=== PATIENT | female | born 1990 | race American Indian/Alaskan Native ===

== ENCOUNTER 2017-04-01 16:38 | Outpatient (CLI) | payer MEDICAID ==
[2017-04-01 17:34] VITALS: BP 105/62
[2017-04-01 17:48] LABS: Urine Drugs of Abuse Note Disclamer
[2017-04-01] MEDS ORDERED: LACTATED RINGERS 500 ML IV ONE (17:58)
[2017-04-01 18:46] LABS: Alanine Aminotransferase 25 units/L (7-56); Albumin/Globulin Ratio 1.1 %; Alkaline Phosphatase 66 units/L (35-129); Amylase 96 units/L (27-131); Anion Gap 15 mmol/L; Blood Urea Nitrogen 10 mg/dL (7-17); Calcium 8.1 mg/dL (8.4-10.2); Carbon Dioxide 22 mmol/L (22-30); Chloride 101.9 mmol/L (98-107); Glucose 73 mg/dL (65-100); Lipase 28 units/L (13-60); Potassium 3.7 mmol/L (3.6-5.0); Sodium 135 mmol/L (137-145); Total Protein 5.8 g/dL (6.3-8.2)
--- NOTE | 2017-04-01 19:13 | Event Note ---
Date: 04/01/17 (pt arrived with c/o left UQ pain and left shoulder pain) complete physical assessment done Pt denies any complications with this her complaint today is LUQ pain and left shoulder pain VSS afebrile. Pt is nontender in upper abdomen and uterus is nontender; No ctx recorded; FHR Category 1 Pt has full ROM in head and neck Labs CMP Amylase and Lipase normal. Pt given copy of results to share with provider. All findings explained to pt. All questions addressed. At completion of visit pt states her [employer] ins has lapsed and she only has Medicaid. Pt was given a list of OB providers and states she will call one of them for an appointment. Total time with pt to include consult and exam 20 minutes.
== END 2017-04-01 19:25 | disposition home or self-care (01) ==
LOC: EDSTATUS 17:01 → TRG 17:06
PROVIDERS: ATTEND Obstetrics & Gynecology
DX: O26.893 Other specified pregnancy related conditions, third trimester (principal); M54.89 Other dorsalgia; R06.02 Shortness of breath; Z3A.34 34 weeks gestation of pregnancy
CPT/HCPCS: 36415; 80053; 80307; 82150; 83690

== ENCOUNTER 2017-11-06 10:07 | Emergency (ER) | payer SELFPAY ==
[2017-11-06 10:39] VITALS: BP 132/82
== END 2017-11-06 14:05 | disposition left against medical advice (07) ==
LOC: ED 10:07
DX: R10.9 Unspecified abdominal pain (principal); Z53.21 Procedure and treatment not carried out due to patient leaving prior to being seen by health care provider
CPT/HCPCS: 93005; 93010

== ENCOUNTER 2017-11-28 04:28 | Inpatient (IN) | payer OTHER ==
[2017-11-28 05:25] LABS: Basophils % (Auto) 0.5 % (0.0-1.8); Eosinophils % (Auto) 0.9 % (0.0-4.3); Hematocrit 44.6 % (30.3-42.9); Hemoglobin 15.4 gm/dl (10.1-14.3); Lymphocytes # (Auto) 0.9 K/mm3 (1.2-5.4); Lymphocytes % (Auto) 16.9 % (13.4-35.0); Mean Corpuscular HGB Conc 35 % (30-34); Mean Corpuscular Hemoglobin 36 pg (28-32); Mean Corpuscular Volume 104 fl (79-97); Monocytes # (Auto) 0.5 K/mm3 (0.0-0.8); Monocytes % (Auto) 9.8 % (0.0-7.3); Platelet Count 192 K/mm3 (140-440); Red Cell Distribution Width 13.9 % (13.2-15.2)
[2017-11-28 05:42] LABS: BUN/Creatinine Ratio 11; Blood Urea Nitrogen 8 mg/dL (7-17); Calcium 8.4 mg/dL (8.4-10.2); Hemolysis Index 10
[2017-11-28] MEDS ORDERED: VITAMIN B-1 100 MG, FOLVITE 1 MG, INFUVITE 10 ML in NACL 0.9% 1000 ML 1,000 ML IV ONE ×2 (07:41→10:45)
[2017-11-28] MEDS ORDERED: ATIVAN IV ONE (07:41)
[2017-11-28] MEDS ORDERED: ATIVAN IV PRN ×2 (07:42)
[2017-11-28] MEDS ORDERED: K-DUR PO ONE (07:44)
[2017-11-28 07:49] LABS: Bacteria,Urine 3+ /HPF (Negative); Bilirubin,Urine NEG (Negative); Blood,Urine LG (Negative); Color,Urine Yellow (Yellow); Mucus,Urine FEW /HPF; Nitrite,Urine NEG (Negative)
[2017-11-28] MEDS ORDERED: D5NS 1,000 ML IV NR (08:00)
[2017-11-28 08:03] LABS: WBC,Urine > 182.0 /HPF (0.0-6.0)
[2017-11-28 08:04] LABS: Bilirubin,Direct 0.3 mg/dL (0-0.2); Magnesium 1.7 mg/dL (1.7-2.3)
[2017-11-28] MEDS ORDERED: ROCEPHIN/NS 1 GM/50 ML 1 GM/50 ML BAG IV ONE (08:15)
--- NOTE | 2017-11-28 08:21 | Emergency Department Report ---
ED Alcohol HPI - General Chief Complaint: Back Pain/Injury Stated Complaint: ANXIOUS Time Seen by Provider: 11/28/17 07:32 Source: family, EMS Mode of arrival: Ambulatory Limitations: No Limitations - History of Present Illness Initial Comments: 27-year-old female with a past medical history of asthma and alcohol abuse presented to the hospital with complaints of feeling anxious, tachycardia, syncope, urinary symptoms. Patient drinks alcohol daily and for the past 2 days has been drinking more than usual. Last drink was 1 PM. Positive recent history of alcohol tremors. About 11 PM patient began feeling anxious with palpitations. She had a brief syncopal episode after standing. Patient also complaining of lower back pain, difficulty voiding, and urinary urgency 1 day. Patient denies headache, chest pain, shortness of breath, abdominal pain, or fever. Positive family history of alcohol abuse. Patient has never received alcohol abuse treatment. - Related Data Allergies Allergy/AdvReac Type Severity Reaction Status Date / Time No Known Allergies Allergy Verified 11/06/17 10:37 ED Review of Systems ROS: Stated complaint: ANXIOUS Other details as noted in HPI Comment: All other systems reviewed and negative Other: Constitutional: No fevers chills Eyes: No eye pain visual changes ENT: No ear pain or throat pain Neck: Denies pain Respiratory: Denies cough wheezing shortness of breath Cardiovascular: Denies chest pain GI: Denies abdominal pain, nausea, vomiting, diarrhea : As per HPI Musculoskeletal: Denies back pain, joint swelling Skin: Denies rash, lesions, erythema Neurologic: Denies headache, numbness, weakness Psychiatric: Denies suicidal ideation, hallucinations ED Past Medical Hx - Past Medical History Previous Medical History?: Yes Hx Hypertension: No Hx Diabetes: No Hx Deep Vein Thrombosis: No Hx Renal Disease: No Hx Sickle Cell Disease: No Hx Seizures: No Hx Asthma: Yes (last attack 1 yr ago) Hx HIV: No - Surgical History Past Surgical History?: No - Family History Family history: other (alcohol abuse) - Social History Smoking Status: Never Smoker Substance Use Type: Alcohol (daily use) ED Physical Exam - General Limitations: No Limitations - Other Other exam information: General: No limitations, patient is alert in no acute distress Head exam: Atraumatic, normocephalic Eyes exam: Normal appearance, nonicteric sclera ENT: Moist mucous membrane, normal oropharynx Neck exam: Normal inspection, full range of motion, no meningismus nontender Respiratory exam: Clear to auscultation bilateral, no wheezes, rales, crackles Cardiovascular: Tachycardic regular rhythm Abdomen: Soft, nondistended, and nontender, with normal bowel sounds, no rebound, or guarding Extremity: Full range of motion normal inspection no deformity Back: Normal Inspection, full range of motion, no tenderness Neurologic: Alert, oriented x3, cranial nerves intact, no motor or sensory deficit. Positive tremor Psychiatric: Mildly anxious Skin: Warm, dry, intact ED Course Vital Signs 11/28/17 11/28/17 11/28/17 04:38 07:28 07:30 Temperature 98.5 F Pulse Rate 130 H 119 H 108 H Respiratory 22 12 25 H Rate Blood Pressure 140/89 147/88 O2 Sat by Pulse 100 Oximetry 11/28/17 07:39 Temperature 98.6 F Pulse Rate Respiratory Rate Blood Pressure O2 Sat by Pulse 98 Oximetry ED Medical Decision Making - Lab Data Result diagrams: 11/28/17 05:12 11/28/17 05:12 Lab Results 11/28/17 11/28/17 11/28/17 Range/Units 05:12 05:12 05:12 WBC 5.5 (4.5-11.0) K/mm3 RBC 4.30 (3.65-5.03) M/mm3 Hgb 15.4 H (10.1-14.3) gm/dl Hct 44.6 H (30.3-42.9) % MCV 104 H (79-97) fl MCH 36 H (28-32) pg MCHC 35 H (30-34) % RDW 13.9 (13.2-15.2) % Plt Count 192 (140-440) K/mm3 Lymph % (Auto) 16.9 (13.4-35.0) % [place] % (Auto) 9.8 H (0.0-7.3) % Eos % (Auto) 0.9 (0.0-4.3) % Baso % (Auto) 0.5 (0.0-1.8) % Lymph # 0.9 L (1.2-5.4) K/mm3 [place] # 0.5 (0.0-0.8) K/mm3 Eos # 0.0 (0.0-0.4) K/mm3 Baso # 0.0 (0.0-0.1) K/mm3 Seg Neutrophils % 71.9 H (40.0-70.0) % Seg Neutrophils # 4.0 (1.8-7.7) K/mm3 Sodium 138 (137-145) mmol/L Potassium 3.5 L (3.6-5.0) mmol/L Chloride 99.8 (98-107) mmol/L Carbon Dioxide 22 (22-30) mmol/L Anion Gap 20 mmol/L BUN 8 (7-17) mg/dL Creatinine 0.7 (0.7-1.2) mg/dL Estimated GFR > 60 ml/min BUN/Creatinine Ratio 11 % Glucose 105 H (65-100) mg/dL Calcium 8.4 (8.4-10.2) mg/dL Magnesium (1.7-2.3) mg/dL Total Bilirubin (0.1-1.2) mg/dL Direct Bilirubin (0-0.2) mg/dL Indirect Bilirubin mg/dL AST (5-40) units/L ALT (7-56) units/L Alkaline Phosphatase (35-129) units/L Total Protein (6.3-8.2) g/dL Albumin (3.9-5) g/dL Albumin/Globulin Ratio % HCG, Qual Negative (Negative) Urine Color (Yellow) Urine Turbidity (Clear) Urine pH (5.0-7.0) Ur Specific [place] (1.003-1.030) Urine Protein (Negative) mg/dL Urine Glucose (UA) (Negative) mg/dL Urine Ketones (Negative) mg/dL Urine Blood (Negative) Urine Nitrite (Negative) Urine Bilirubin (Negative) Urine Urobilinogen (<2.0) mg/dL Ur Leukocyte Esterase (Negative) Urine WBC (Auto) (0.0-6.0) /HPF Urine RBC (Auto) (0.0-6.0) /HPF U Epithel Cells (Auto) (0-13.0) /HPF Urine Bacteria (Auto) (Negative) /HPF Urine Mucus /HPF 11/28/17 11/28/17 Range/Units 06:11 07:41 WBC (4.5-11.0) K/mm3 RBC (3.65-5.03) M/mm3 Hgb (10.1-14.3) gm/dl Hct (30.3-42.9) % MCV (79-97) fl MCH (28-32) pg MCHC (30-34) % RDW (13.2-15.2) % Plt Count (140-440) K/mm3 Lymph % (Auto) (13.4-35.0) % [place] % (Auto) (0.0-7.3) % Eos % (Auto) (0.0-4.3) % Baso % (Auto) (0.0-1.8) % Lymph # (1.2-5.4) K/mm3 [place] # (0.0-0.8) K/mm3 Eos # (0.0-0.4) K/mm3 Baso # (0.0-0.1) K/mm3 Seg Neutrophils % (40.0-70.0) % Seg Neutrophils # (1.8-7.7) K/mm3 Sodium (137-145) mmol/L Potassium (3.6-5.0) mmol/L Chloride (98-107) mmol/L Carbon Dioxide (22-30) mmol/L Anion Gap mmol/L BUN (7-17) mg/dL Creatinine (0.7-1.2) mg/dL Estimated GFR ml/min BUN/Creatinine Ratio % Glucose (65-100) mg/dL Calcium (8.4-10.2) mg/dL Magnesium 1.70 (1.7-2.3) mg/dL Total Bilirubin 1.50 H (0.1-1.2) mg/dL Direct Bilirubin 0.3 H (0-0.2) mg/dL Indirect Bilirubin 1.2 mg/dL AST 33 (5-40) units/L ALT 26 (7-56) units/L Alkaline Phosphatase 61 (35-129) units/L Total Protein 6.7 (6.3-8.2) g/dL Albumin 4.0 (3.9-5) g/dL Albumin/Globulin Ratio 1.5 % HCG, Qual (Negative) Urine Color Yellow (Yellow) Urine Turbidity Clear (Clear) Urine pH 6.0 (5.0-7.0) Ur Specific [place] 1.021 (1.003-1.030) Urine Protein 100 mg/dl (Negative) mg/dL Urine Glucose (UA) Neg (Negative) mg/dL Urine Ketones Neg (Negative) mg/dL Urine Blood Lg (Negative) Urine Nitrite Neg (Negative) Urine Bilirubin Neg (Negative) Urine Urobilinogen 2.0 (<2.0) mg/dL Ur Leukocyte Esterase Mod (Negative) Urine WBC (Auto) > 182.0 H (0.0-6.0) /HPF Urine RBC (Auto) 10.0 (0.0-6.0) /HPF U Epithel Cells (Auto) 10.0 (0-13.0) /HPF Urine Bacteria (Auto) 3+ (Negative) /HPF Urine Mucus Few /HPF - EKG Data -: EKG Interpreted by Me EKG shows normal: sinus rhythm, axis (70), QRS complexes (78), ST-T waves (no stemi/t inv) Rate: tachycardia (112) - Radiology Data Radiology results: report reviewed read by radiologist: ct Head: naf - Medical Decision Making Palpitations/tachycardia Likely secondary to alcohol withdrawal Associated tremors Patient received a banana bag Normal saline Ativan IV CIWA protocol initiated LFTs normal Mild hypokalemia supplement it with by mouth potassium Magnesium normal UDS pending Syncope Likely associated with dehydration CT head negative negative Urinary symptoms Positive tachycardia but no signs of sepsis IV Rocephin given Urine culture pending Although improving patient's persistent tachycardia despite treatment and will be admitted to the hospital - Differential Diagnosis alcohol withdrawal, anemia, dehydration, UTI, Critical Care Time: No Critical care attestation.: If time is entered above; I have spent that time in minutes in the direct care of this critically ill patient, excluding procedure time. ED Disposition Clinical Impression: Alcohol abuse, Alcohol withdrawal, UTI (urinary tract infection), Syncope, Hypokalemia Disposition: DC-09 OP ADMIT IP TO THIS HOSP Is pt being admited?: Yes Condition: Stable Time of Disposition: 09:58 (Dr rubio/hosp)
--- NOTE | 2017-11-28 08:33 | Cat Scan Report ---
FINAL REPORT EXAM: CT HEAD/BRAIN WO CON HISTORY: syncope TECHNIQUE: CT imaging acquired through the head without intravenous contrast. Transaxial reformations are provided. PRIORS: None. FINDINGS: The ventricles, cisterns and sulci are normal. No intraparenchymal or extra-axial mass, hemorrhage, or mass effect. Azar and white-matter differentiation is normal. Normal spherical shape of the globes. Paranasal sinuses and mastoid air cells are clear. No skull or facial fracture visualized. IMPRESSION: No acute intracranial abnormality.
[2017-11-28] MEDS ORDERED: cefTRIAXone 1 GM in NACL 0.9% 20 ML IV ONE (08:45)
[2017-11-28 10:08] LABS: Amphetamine Screen,Urine PRESUMPTIVE NEGATIVE; Benzodiazepines Screen,Urine PRESUMPTIVE NEGATIVE; Cannabinoid Screen,Urine PRESUMPTIVE NEGATIVE; Cocaine Screen,Urine PRESUMPTIVE NEGATIVE; Methadone Screen,Urine PRESUMPTIVE NEGATIVE; Opiate Screen,Urine PRESUMPTIVE NEGATIVE
[2017-11-28] MEDS ORDERED: ZOFRAN IV PRN ×2 (10:42→10:49)
[2017-11-28] MEDS ORDERED: MILK OF MAGNESIA PO PRN ×2 (10:42→10:49)
[2017-11-28] MEDS ORDERED: TYLENOL PO PRN ×2 (10:42→10:49)
[2017-11-28] MEDS ORDERED: PERCOCET 5/325 PO PRN (10:49)
[2017-11-28] MEDS ORDERED: DULCOLAX PR PRN ×2 (10:49→11:00)
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
[2017-11-28] MEDS ORDERED: cefTRIAXone 1 GM in NACL 0.9% 20 ML IV SCH (11:00)
[2017-11-28] MEDS ORDERED: NACL 0.9% 1000 ML 1,000 ML ONE (13:58)
[2017-11-28] MEDS: NACL 0.9% 1000 ML 1,000 ML IV SCH ×2 (14:03→22:32)
[2017-11-28] MEDS ORDERED: ATIVAN ONE (14:07)
[2017-11-29 06:33] LABS: BUN/Creatinine Ratio 5; Blood Urea Nitrogen 3 mg/dL (7-17); Calcium 8.1 mg/dL (8.4-10.2); Hemolysis Index 8
[2017-11-29 08:45] VITALS: BP 129/89
[2017-11-29] MEDS ORDERED: ROCEPHIN/NS 1 GM/50 ML 1 GM/50 ML BAG IV SCH (10:00)
[2017-11-29] MEDS ORDERED: cefTRIAXone 1 GM in NACL 0.9% 20 ML IV SCH (10:00)
[2017-11-29] MEDS: NACL 0.9% 1000 ML 1,000 ML IV SCH (12:00)
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
== END 2017-11-29 14:25 | disposition home or self-care (01) | DRG 690 ==
LOC: ED 04:28 → 3A 10:49
PROVIDERS: ADMIT Internal Medicine; ATTEND Internal Medicine
DX: N39.0 Urinary tract infection, site not specified (principal); F10.239 Alcohol dependence with withdrawal, unspecified; F41.9 Anxiety disorder, unspecified; R00.0 Tachycardia, unspecified; E87.6 Hypokalemia; R55 Syncope and collapse; Z81.1 Family history of alcohol abuse and dependence
CPT/HCPCS: 36415; 70450; 80048; 80074; 80307; 81001; 83735; 84703; 85025; 87076; 87086; 87186; 93005; 93010; 96365; 96366; 96375; 99285; J0696; J2060; J3411; J7030; J7042

== ENCOUNTER 2018-04-22 06:22 | Emergency (ER) | payer MEDICAID ==
[2018-04-22] MEDS ORDERED: TYLENOL ONE (07:00)
[2018-04-22] MEDS ORDERED: ASPIRIN PO ONE (07:01)
[2018-04-22 07:19] LABS: Basophils % (Auto) 0.7 % (0.0-1.8); Eosinophils # (Auto) 0.1 K/mm3 (0.0-0.4); Eosinophils % (Auto) 1.8 % (0.0-4.3); Hematocrit 44.2 % (30.3-42.9); Lymphocytes # (Auto) 1.1 K/mm3 (1.2-5.4); Lymphocytes % (Auto) 24.7 % (13.4-35.0); Mean Corpuscular HGB Conc 34 % (30-34); Mean Corpuscular Hemoglobin 35 pg (28-32); Mean Corpuscular Volume 103 fl (79-97); Monocytes # (Auto) 0.4 K/mm3 (0.0-0.8); Monocytes % (Auto) 8.9 % (0.0-7.3); Platelet Count 192 K/mm3 (140-440); Red Cell Distribution Width 13.6 % (13.2-15.2)
[2018-04-22 07:30] LABS: BUN/Creatinine Ratio 16; Blood Urea Nitrogen 11 mg/dL (7-17); Hemolysis Index 11
[2018-04-22] MEDS ORDERED: TENORMIN PO ONE (08:11)
[2018-04-22] MEDS ORDERED: TORADOL IV ONE (08:11)
[2018-04-22] MEDS ORDERED: BENADRYL IV ONE (08:11)
[2018-04-22] MEDS ORDERED: NACL 0.9% 1000 ML 1,000 ML IV ONE (08:11)
[2018-04-22] MEDS ORDERED: REGLAN IV ONE (08:11)
--- NOTE | 2018-04-22 09:03 | Emergency Department Report ---
ED Headache HPI - General Chief Complaint: Chest Pain Stated Complaint: CP Time Seen by Provider: 04/22/18 07:54 Source: patient Exam Limitations: no limitations - History of Present Illness Initial Comments: 28-year-old female with a past medical history of asthma, anxiety, and alcohol abuse presents also complaining of intermittent left-sided headache since yesterday. Yesterday she has had also left frontal headache at 9 PM. Pain was severe in intensity. It went away after stress reliever tea. This morning while showering left headache returned and was worse than last night. Her stress tea did not help the headache this time. During headache episodes patient has mid upper chest pain described as a tightness worse with swallowing. Positive associated nausea without photosensitivity, blurred vision , focal weakness, focal numbness, neck pain, shortness of breath, or vomiting. Patient was admitted earlier this year for alcohol withdrawal symptoms. Patient states she has decreased her alcohol use and no longer drinks alcohol daily. She does take atenolol 12.5 mg daily and is requesting her scheduled dose. Allergies/Adverse Reactions: Allergies No Known Allergies Allergy (Verified 11/06/17 10:37) Home Medications: Ambulatory Orders Multivitamin Tablet 11/28/17 Ciprofloxacin HCl [Cipro] 500 mg PO BID #6 tablet 11/29/17 Amoxicillin/K Clav Tab [Augmentin 875 mg] 1 tab PO Q12HR #14 tab 04/22/18 Butalb/Acetamin/Caff 50-325-40 [Fioricet] 1 tab PO Q6HR PRN #20 tab 04/22/18 Ibuprofen [Motrin] 600 mg PO Q8H PRN #30 tablet 04/22/18 ED Review of Systems ROS: Stated complaint: CP Other details as noted in HPI Comment: All other systems reviewed and negative ED Past Medical Hx - Past Medical History Previous Medical History?: Yes Hx Hypertension: No Hx Diabetes: No Hx Deep Vein Thrombosis: No Hx Renal Disease: No Hx Sickle Cell Disease: No Hx Seizures: No Hx Asthma: Yes Hx HIV: No - Surgical History Past Surgical History?: No - Social History Smoking Status: Never Smoker Substance Use Type: Alcohol - Medications Home Medications: Home Medications Medication Instructions Recorded Confirmed Last Taken Type Multivitamin Tablet 11/28/17 Unknown History Ciprofloxacin HCl [Cipro] 500 mg PO BID #6 tablet 11/29/17 Unknown Rx Amoxicillin/K Clav Tab [Augmentin 1 tab PO Q12HR #14 tab 04/22/18 Unknown Rx 875 mg] Butalb/Acetamin/Caff 50-325-40 1 tab PO Q6HR PRN #20 tab 04/22/18 Unknown Rx [Fioricet] Ibuprofen [Motrin] 600 mg PO Q8H PRN #30 tablet 04/22/18 Unknown Rx ED Physical Exam - General Limitations: No Limitations - Other Other exam information: General: No limitations, patient is alert in no acute distress Head exam: Atraumatic, normocephalic, no sinus tenderness Eyes exam: Normal appearance, pupils equal reactive to light, extraocular movements intact ENT: Moist mucous membrane, normal oropharynx Neck exam: Normal inspection, full range of motion, no meningismus nontender Respiratory exam: Clear to auscultation bilateral, no wheezes, rales, crackles Cardiovascular: Normal rate and rhythm, normal heart sounds, no chest wall tenderness Abdomen: Soft, nondistended, and nontender, with normal bowel sounds, no rebound, or guarding Extremity: Full range of motion normal inspection no deformity Back: Normal Inspection, full range of motion, no tenderness Neurologic: Alert, oriented x3, cranial nerves intact, no motor or sensory deficit Psychiatric: normal affect, normal mood Skin: Warm, dry, intact ED Course Vital Signs 04/22/18 04/22/18 04/22/18 06:53 07:47 08:00 Temperature 98.1 F Pulse Rate 55 L Respiratory 12 Rate Blood Pressure 129/85 129/85 Blood Pressure [Right] O2 Sat by Pulse 98 100 100 Oximetry 04/22/18 04/22/18 04/22/18 08:15 08:34 08:45 Temperature Pulse Rate Respiratory Rate Blood Pressure 127/77 129/85 129/85 Blood Pressure [Right] O2 Sat by Pulse 100 77 L Oximetry 04/22/18 04/22/18 04/22/18 09:03 09:11 09:15 Temperature Pulse Rate 89 107 H Respiratory 13 Rate Blood Pressure 129/85 139/83 Blood Pressure [Right] O2 Sat by Pulse 100 Oximetry 04/22/18 04/22/18 09:30 11:00 Temperature Pulse Rate 77 Respiratory 16 Rate Blood Pressure 115/74 Blood Pressure 116/69 [Right] O2 Sat by Pulse 99 99 Oximetry ED Medical Decision Making - Lab Data Result diagrams: 04/22/18 07:10 04/22/18 07:10 Lab Results 04/22/18 04/22/18 04/22/18 Range/Units 07:10 07:10 07:10 WBC 4.3 L (4.5-11.0) K/mm3 RBC 4.30 (3.65-5.03) M/mm3 Hgb 15.0 H (10.1-14.3) gm/dl Hct 44.2 H (30.3-42.9) % MCV 103 H (79-97) fl MCH 35 H (28-32) pg MCHC 34 (30-34) % RDW 13.6 (13.2-15.2) % Plt Count 192 (140-440) K/mm3 Lymph % (Auto) 24.7 (13.4-35.0) % [place] % (Auto) 8.9 H (0.0-7.3) % Eos % (Auto) 1.8 (0.0-4.3) % Baso % (Auto) 0.7 (0.0-1.8) % Lymph # 1.1 L (1.2-5.4) K/mm3 [place] # 0.4 (0.0-0.8) K/mm3 Eos # 0.1 (0.0-0.4) K/mm3 Baso # 0.0 (0.0-0.1) K/mm3 Seg Neutrophils % 63.9 (40.0-70.0) % Seg Neutrophils # 2.7 (1.8-7.7) K/mm3 Sodium 139 (137-145) mmol/L Potassium 4.0 (3.6-5.0) mmol/L Chloride 101.4 (98-107) mmol/L Carbon Dioxide 24 (22-30) mmol/L Anion Gap 18 mmol/L BUN 11 (7-17) mg/dL Creatinine 0.7 (0.7-1.2) mg/dL Estimated GFR > 60 ml/min BUN/Creatinine Ratio 16 % Glucose 89 (65-100) mg/dL Calcium 9.0 (8.4-10.2) mg/dL Troponin T < 0.010 (0.00-0.029) ng/mL HCG, Qual Negative (Negative) - EKG Data -: EKG Interpreted by De EKG shows normal: sinus rhythm, axis Rate: normal (99) - Radiology Data Radiology results: report reviewed CT HEAD WITHOUT CONTRAST: HISTORY: Left frontal headache. TECHNIQUE: Sequential 2.5mm CT images. COMPARISON: 11/28/17. FINDINGS: Cerebral Parenchyma: Within normal limits. Cerebellum: Within normal limits. Brainstem: Within normal limits. Ventricles: Normal. Sella: Normal. Extra-axial spaces: Normal. Basal Cisterns: Normal. Intracranial Hemorrhage: None. Midline Shift: None. Calvarium: Normal. Sinuses: There is a mild degree of fluid in the anterior ethmoid air cells and right frontal sinus which is new since the previous exam. The remaining visualized sinuses are well-aerated. Mastoid Air Cells: Normal. Visualized Orbits: Normal. IMPRESSION: Cranial CT scan within normal limits. Mild ethmoid and right frontal sinus disease which is new since 11/28/17. Correlate for sinusitis. Transcribed By: TTR Dictated By: YEFRI POWELL JR, MD Electronically Authenticated By: YEFRI POWELL JR, MD Signed Date/Time: 04/22/18 0858 - Medical Decision Making Triage heart rate is 55 the patient has a heart rate of 99 on EKG and monitor. Atenolol 12.5 given Migraine cocktail: reglan, benadryl, toradol, NS given Augmentin for new sinusitis hr improved after atenolol dose sx improved prior to d/cd We'll be discharged home with treatment for headache and sinusitis - Differential Diagnosis migraine, ICH, sinus, tensin, cluster, mi, atypical cp Critical Care Time: No Critical care attestation.: If time is entered above; I have spent that time in minutes in the direct care of this critically ill patient, excluding procedure time. ED Disposition Clinical Impression: Headache, Acute sinusitis Disposition: DC- TO HOME OR SELFCARE Is pt being admited?: No Does the pt Need Aspirin: No Condition: Stable Instructions: Sinusitis (ED), Acute Headache (ED) Additional Instructions: Take the medication as prescribed. Follow-up with your doctor. Return if symptoms worsen as indicated by your discharge instructions. Prescriptions: Amoxicillin/K Clav Tab [Augmentin 875 mg] 1 tab PO Q12HR #14 tab Butalb/Acetamin/Caff 50-325-40 [Fioricet] 1 tab PO Q6HR PRN #20 tab PRN Reason: Headache Ibuprofen [Motrin] 600 mg PO Q8H PRN #30 tablet PRN Reason: Pain Referrals: NELSY SAHNI MD [Primary Care Provider] - 3-5 Days Time of Disposition: 11:43
--- NOTE | 2018-04-22 09:21 | Cat Scan Report ---
CT HEAD WITHOUT CONTRAST: HISTORY: Left frontal headache. TECHNIQUE: Sequential 2.5mm CT images. COMPARISON: 11/28/17. FINDINGS: Cerebral Parenchyma: Within normal limits. Cerebellum: Within normal limits. Brainstem: Within normal limits. Ventricles: Normal. Sella: Normal. Extra-axial spaces: Normal. Basal Cisterns: Normal. Intracranial Hemorrhage: None. Midline Shift: None. Calvarium: Normal. Sinuses: There is a mild degree of fluid in the anterior ethmoid air cells and right frontal sinus which is new since the previous exam. The remaining visualized sinuses are well-aerated. Mastoid Air Cells: Normal. Visualized Orbits: Normal. IMPRESSION: Cranial CT scan within normal limits. Mild ethmoid and right frontal sinus disease which is new since 11/28/17. Correlate for sinusitis.
[2018-04-22] MEDS ORDERED: AUGMENTIN 875 MG PO ONE (09:55)
[2018-04-22 11:31] VITALS: BP 116/69
== END 2018-04-22 11:56 | disposition home or self-care (01) ==
LOC: ED 06:22
DX: J01.20 Acute ethmoidal sinusitis, unspecified (principal); J01.10 Acute frontal sinusitis, unspecified; R07.89 Other chest pain; J45.909 Unspecified asthma, uncomplicated
CPT/HCPCS: 36415; 70450; 80048; 84484; 84703; 85025; 93005; 93010; 96374; 96375; 99284; J1200; J1885; J2765; J7030

== ENCOUNTER 2021-08-25 18:24 | Emergency (ER) | payer MEDICAID ==
[2021-08-25 19:19] VITALS: BP 122/85
--- NOTE | 2021-08-25 20:04 | Emergency Department Report ---
ED General Adult HPI - General Chief complaint: Earache Stated complaint: RT SIDE EAR FACE PAIN, DIFF SWALLOWING Time Seen by Provider: 08/25/21 19:41 Source: patient Mode of arrival: Ambulatory Limitations: No Limitations - History of Present Illness Initial comments: 31 yo AA F pt without PMHx presents with complaints right sided ear pain for the past few days. Pt states she was treated with amoxicillin via urgent care 3 weeks ago for a R ear infection. Pt states her symptoms persisted despite taking the antibiotic and she was then seen at [facility] for the same. Ptk reports she was prescribed sudafed and that her symptoms improved without taking the medication. She states she is now having irritation and itching to the ear along with pain when she rubs her ear. Pt also complains of scratchy throat with mild pain and nasal congestion. She states she has tested negative for covid and denies any loss of taste or smell, fever/chills/sweats, or cough. Severity scale (0 -10): 3 - Related Data Home Medications Medication Instructions Recorded Confirmed Last Taken Multivitamin Tablet 11/28/17 Unknown Previous Rx's Medication Instructions Recorded Last Taken Type Ciprofloxacin HCl [Cipro] 500 mg PO BID #6 tablet 11/29/17 Unknown Rx Amoxicillin/K Clav Tab [Augmentin 1 tab PO Q12HR #14 tab 04/22/18 Unknown Rx 875 mg] Butalb/Acetamin/Caff 50-325-40 1 tab PO Q6HR PRN #20 tab 04/22/18 Unknown Rx [Fioricet] Ibuprofen [Motrin] 600 mg PO Q8H PRN #30 tablet 04/22/18 Unknown Rx Levocetirizine Dihydrochloride 5 mg PO QHS PRN #10 tablet 08/25/21 Unknown Rx [Xyzal] dexAMETHasone [Decadron] 8 mg PO QAM 2 Days #4 tablet 08/25/21 Unknown Rx Allergies Allergy/AdvReac Type Severity Reaction Status Date / Time No Known Allergies Allergy Verified 11/06/17 10:37 ED Review of Systems ROS: Stated complaint: RT SIDE EAR FACE PAIN, DIFF SWALLOWING Other details as noted in HPI Constitutional: denies: chills, diaphoresis, fever, malaise, weakness Eyes: denies: eye pain, vision change ENT: ear pain, throat pain Respiratory: denies: cough Cardiovascular: denies: chest pain Gastrointestinal: denies: nausea, vomiting Skin: denies: rash, change in color Neurological: denies: headache, numbness, paresthesias Hematological/Lymphatic: denies: swollen glands ED Past Medical Hx - Past Medical History Hx Hypertension: No Hx Diabetes: No Hx Deep Vein Thrombosis: No Hx Renal Disease: No Hx Sickle Cell Disease: No Hx Seizures: No Hx Asthma: Yes Hx HIV: No - Surgical History Past Surgical History?: No - Social History Smoking Status: Never Smoker Substance Use Type: Alcohol - Medications Home Medications: Home Medications Medication Instructions Recorded Confirmed Last Taken Type Multivitamin Tablet 11/28/17 Unknown History Ciprofloxacin HCl [Cipro] 500 mg PO BID #6 tablet 11/29/17 Unknown Rx Amoxicillin/K Clav Tab [Augmentin 1 tab PO Q12HR #14 tab 04/22/18 Unknown Rx 875 mg] Butalb/Acetamin/Caff 50-325-40 1 tab PO Q6HR PRN #20 tab 04/22/18 Unknown Rx [Fioricet] Ibuprofen [Motrin] 600 mg PO Q8H PRN #30 tablet 04/22/18 Unknown Rx Levocetirizine Dihydrochloride 5 mg PO QHS PRN #10 tablet 08/25/21 Unknown Rx [Xyzal] dexAMETHasone [Decadron] 8 mg PO QAM 2 Days #4 tablet 08/25/21 Unknown Rx ED Physical Exam - General Limitations: No Limitations General appearance: alert, in no apparent distress - Head Head exam: Present: atraumatic, normocephalic - Eye Eye exam: Present: normal appearance. Absent: scleral icterus - ENT ENT exam: Present: TM's normal bilaterally, normal external ear exam, other (turbinates are swollen and erythemic bilaterally ; no sinus ttp noted bilaterally to frontal or maxillary sinuses) - Expanded ENT Exam Expanded Mouth exam: Absent: drooling, trismus, muffled voice Throat exam: Positive: other (post-nasal drainage noted ). Negative: tonsillar erythema, tonsillomegaly, tonsillar exudate - Neck Neck exam: Present: normal inspection, full ROM. Absent: tenderness - Respiratory Respiratory exam: Absent: respiratory distress - Cardiovascular Cardiovascular Exam: Present: regular rate - Neurological Exam Neurological exam: Present: alert, oriented X3, normal gait - Psychiatric Psychiatric exam: Present: normal affect, normal mood - Skin Skin exam: Present: warm, dry, intact, normal color. Absent: rash, cyanosis, diaphoretic, pallor ED Course Vital Signs 08/25/21 19:17 Temperature 98.9 F Pulse Rate 85 Respiratory 16 Rate Blood Pressure 122/85 [Left] O2 Sat by Pulse 100 Oximetry ED Medical Decision Making - Medical Decision Making 31 yo AA F pt without PMHx presents with complaints right sided ear pain for the past few days. Pt states she was treated with amoxicillin via urgent care 3 weeks ago for a R ear infection. Pt states her symptoms persisted despite taking the antibiotic and she was then seen at [facility] for the same. Pt reports she was prescribed sudafed and that her symptoms improved without taking the medication. She states she is now having irritation and itching to the ear along with pain when she rubs her ear. Pt also complains of scratchy throat with mild pain and nasal congestion. She states she has tested negative for covid and denies any loss of taste or smell, fever/chills/sweats, or cough. Will treat for viral URI. Pt to follow up with ENT, referral provided. Strict return precautions were discussed in detail with pt who verbalizes understanding. Critical care attestation.: If time is entered above; I have spent that time in minutes in the direct care of this critically ill patient, excluding procedure time. ED Disposition Clinical Impression: Ear congestion Disposition: 01 HOME / SELF CARE / HOMELESS Is pt being admited?: No Condition: Stable Instructions: Earache, Adult Prescriptions: Levocetirizine Dihydrochloride [Xyzal] 5 mg PO QHS PRN #10 tablet PRN Reason: Congestion dexAMETHasone [Decadron] 8 mg PO QAM 2 Days #4 tablet Referrals: HUNTER HAMM MD [Staff Physician] - 3-5 Days Forms: Work/School Release Form(ED)
== END 2021-08-25 21:11 | disposition left against medical advice (07) ==
LOC: ED 18:24
DX: H83.8X1 Other specified diseases of right inner ear (principal)
CPT/HCPCS: 99281

== ENCOUNTER 2021-09-23 15:26 | Emergency (ER) | payer MEDICAID ==
[2021-09-23 15:30] VITALS: BP 111/74
--- NOTE | 2021-09-23 15:54 | Emergency Department Report ---
ED Female HPI - General Chief complaint: Vaginal Bleeding Stated complaint: VAGINAL BLEEDING Time Seen by Provider: 09/23/21 15:44 Source: patient Mode of arrival: Ambulatory Limitations: No Limitations - History of Present Illness Initial comments: 31-year-old female presents to the ER with complaints of vaginal bleeding. Patient states that she had a normal menstrual cycle from around August 27 through September 01. She states that a week later she noticed that she was spotting, which lasted about 2 days. She states that 4 days later she started spotting again and so 2 days ago she took a home test that was negative but yesterday she took another test and it was positive. She states that she did bleed heavier last night but since this morning has slowed down to now spotting. She states that she did go to [facility], and she was told that based on her last period she was about 8 weeks which she does not think is correct and she states that she is also scheduled to have an elective tomorrow. She states that the main reason she is here is because if the bleeding is related to miscarriage then she would not have to go have the . She reports associated low abdominal cramping which has been waxing and waning, decreased appetite and fatigue. She is G4, P2 Ab1. Complaint: vaginal bleeding -: days(s) - Related Data Home Medications Medication Instructions Recorded Confirmed Last Taken Multivitamin Tablet 11/28/17 Unknown Previous Rx's Medication Instructions Recorded Last Taken Type Ciprofloxacin HCl [Cipro] 500 mg PO BID #6 tablet 11/29/17 Unknown Rx Amoxicillin/K Clav Tab [Augmentin 1 tab PO Q12HR #14 tab 04/22/18 Unknown Rx 875 mg] Butalb/Acetamin/Caff 50-325-40 1 tab PO Q6HR PRN #20 tab 04/22/18 Unknown Rx [Fioricet] Ibuprofen [Motrin] 600 mg PO Q8H PRN #30 tablet 04/22/18 Unknown Rx Levocetirizine Dihydrochloride 5 mg PO QHS PRN #10 tablet 08/25/21 Unknown Rx [Xyzal] dexAMETHasone [Decadron] 8 mg PO QAM 2 Days #4 tablet 08/25/21 Unknown Rx cephALEXin [Keflex] 500 mg PO Q8HR #21 cap 09/23/21 Unknown Rx Allergies Allergy/AdvReac Type Severity Reaction Status Date / Time No Known Allergies Allergy Verified 11/06/17 10:37 ED Review of Systems ROS: Stated complaint: VAGINAL BLEEDING Other details as noted in HPI ED Past Medical Hx - Past Medical History Hx Hypertension: No Hx Diabetes: No Hx Deep Vein Thrombosis: No Hx Renal Disease: No Hx Sickle Cell Disease: No Hx Seizures: No Hx Asthma: Yes Hx HIV: No - Social History Smoking Status: Never Smoker Substance Use Type: Alcohol - Medications Home Medications: Home Medications Medication Instructions Recorded Confirmed Last Taken Type Multivitamin Tablet 11/28/17 Unknown History Ciprofloxacin HCl [Cipro] 500 mg PO BID #6 tablet 11/29/17 Unknown Rx Amoxicillin/K Clav Tab [Augmentin 1 tab PO Q12HR #14 tab 04/22/18 Unknown Rx 875 mg] Butalb/Acetamin/Caff 50-325-40 1 tab PO Q6HR PRN #20 tab 04/22/18 Unknown Rx [Fioricet] Ibuprofen [Motrin] 600 mg PO Q8H PRN #30 tablet 04/22/18 Unknown Rx Levocetirizine Dihydrochloride 5 mg PO QHS PRN #10 tablet 08/25/21 Unknown Rx [Xyzal] dexAMETHasone [Decadron] 8 mg PO QAM 2 Days #4 tablet 08/25/21 Unknown Rx cephALEXin [Keflex] 500 mg PO Q8HR #21 cap 09/23/21 Unknown Rx ED Physical Exam - General Limitations: No Limitations ED Course Vital Signs 09/23/21 15:29 Temperature 98.4 F Pulse Rate 87 Respiratory 15 Rate Blood Pressure 111/74 [Right] O2 Sat by Pulse 100 Oximetry ED Medical Decision Making - Lab Data Result diagrams: 09/23/21 16:13 09/23/21 16:13 - Radiology Data Radiology results: report reviewed Patient: AMARJIT FERNÁNDEZ MR#: [id number] : 1990 Acct:[id number] Age/Sex: 31 / F ADM Date: 09/23/21 Loc: ED Attending Dr: Ordering Physician: LONDON MCNAIR Date of Service: 09/23/21 Procedure(s): US OB transvaginal Accession Number(s): [id number] cc: LONDON MCNAIR ULTRASOUND PELVIS ULTRASOUND OBSTETRIC INDICATION / CLINICAL INFORMATION: +home preg/vag bleeding/. Clinical Gestational Age (GA) in weeks, days: 3, 1 TECHNIQUE: Transvaginal. COMPARISON: None available. FINDINGS: GESTATIONAL SAC: Not seen YOLK SAC: Not seen EMBRYO/FETUS: Not seen ADNEXA: No significant abnormality. FREE FLUID: None. ADDITIONAL FINDINGS: None. IMPRESSION: No evidence of intrauterine gestation. In the presence of a positive test this is a of unknown location in the differential includes very early versus missed versus ectopic. Recommend repeat ultrasound in 7-10 days. Signer Name: Jairo Lane DO Signed: 09/23/2021 5:11 PM Workstation Name: [id number] Transcribed By: MER Dictated By: JAIRO LANE DO Electronically Authenticated By: JAIRO LANE DO Signed Date/Time: 09/23/211710 DD/ 06 TD/TT: - Medical Decision Making 1735 -patient's quant hCG measures 439.6. OB ultrasound currently shows no evidence of intrauterine gestation, with differential diagnosis including very early versus missed versus ectopic and radiologist recommend repeat ultrasound in 7 to 10 days. CBC unremarkable. CMP unremarkable. Urine is concerning for possible UTI. ED Rh is B+ therefore no indication for RhoGam today. Patient currently is not toxic not ill-appearing and not in any sig nificant distress. She has a soft nontender abdomen. Her vital signs are stable. She is neurologically intact and has been ambulatory in the ER with a normal gait. Discussed lab results with patient, as well as ultrasound results with patient. Informed her that given such a low quantitative hCG and no evidence of IUP on ultrasound, that at this time is difficult to rule out an ectopic and so she will need to follow-up in 7 to 10 days with OB to have it repeated. I did inform her to return sooner if at any point she starts having significant lower abdominal pain especially if it localizes to one side versus another and with worsening bleeding at this this could be concerning for an ectopic . Patient did voice that she does not plan on keeping this , but I informed her that she should still wait to determine where the is located before attempting an . Patient expressed understanding of all instructions and agree with plan. Patient was stable at time of discharge Critical care attestation.: If time is entered above; I have spent that time in minutes in the direct care of this critically ill patient, excluding procedure time. ED Disposition Clinical Impression: UTI (urinary tract infection), Threatened miscarriage Disposition: HOME / SELF CARE / HOMELESS Is pt being admited?: No Does the pt Need Aspirin: No Condition: Stable Instructions: Urinary Tract Infection, Adult, [id number], Threatened Miscarriage, [id number] Additional Instructions: I recommend that you take the Keflex as prescribed for UTI. You can take Tylenol as needed for pain. Do recommend follow-up with your [facility] to [facility] in 7 to 10 days for repeat ultrasound and quant hCG. But if any point your pain worsens especially if it locates on 1 side versus the other of your lower abdomen and worsening vaginal bleeding return immediately to the ER as this could be a sign of ectopic . Prescriptions: cephALEXin [Keflex] 500 mg PO Q8HR #21 cap Referrals: [facility] [Provider Group] - 7-10 days Forms: Work/School Release Form(ED) Time of Disposition: 17:33
[2021-09-23 16:20] LABS: Bacteria,Urine 2+ /HPF (Negative); Bilirubin,Urine NEG (Negative); Blood,Urine LG (Negative); Color,Urine Yellow (Yellow); Mucus,Urine 3+ /HPF
[2021-09-23 16:49] LABS: Basophils % (Auto) 0.5 % (0.0-1.8); Eosinophils # (Auto) 0.1 K/mm3 (0.0-0.4); Eosinophils % (Auto) 0.9 % (0.0-4.3); Hematocrit 45.1 % (30.3-42.9); Hemoglobin 14.8 gm/dl (10.1-14.3); Lymphocytes % (Auto) 18.4 % (13.4-35.0); Mean Corpuscular HGB Conc 33 % (30-34); Mean Corpuscular Volume 104 fl (79-97); Monocytes # (Auto) 0.5 K/mm3 (0.0-0.8); Monocytes % (Auto) 9.4 % (0.0-7.3); Platelet Count 185 K/mm3 (140-440); Red Blood Count 4.35 M/mm3 (3.65-5.03); Red Cell Distribution Width 13.8 % (13.2-15.2)
[2021-09-23 17:01] LABS: Alanine Aminotransferase 21 units/L (7-56); Blood Urea Nitrogen 9 mg/dL (7-17); Calcium 8.9 mg/dL (8.4-10.2); Hemolysis Index 12
[2021-09-23 17:04] LABS: BUN/Creatinine Ratio 15
--- NOTE | 2021-09-23 17:15 | Ultrasound Report ---
ULTRASOUND PELVIS ULTRASOUND OBSTETRIC INDICATION / CLINICAL INFORMATION: +home preg/vag bleeding/. Clinical Gestational Age (GA) in weeks, days: 3, 1 TECHNIQUE: Transvaginal. COMPARISON: None available. FINDINGS: GESTATIONAL SAC: Not seen YOLK SAC: Not seen EMBRYO/FETUS: Not seen ADNEXA: No significant abnormality. FREE FLUID: None. ADDITIONAL FINDINGS: None. IMPRESSION: No evidence of intrauterine gestation. In the presence of a positive test this is a pregnan cy of unknown location in the differential includes very early versus missed versu s ectopic. Recommend repeat ultrasound in 7-10 days. Signer Name: Jairo Lane DO Signed: 09/23/2021 5:11 PM Workstation Name: [id number]
== END 2021-09-23 17:45 | disposition home or self-care (01) ==
LOC: ED 15:26
DX: O20.0 Threatened abortion (principal); N39.0 Urinary tract infection, site not specified; J45.909 Unspecified asthma, uncomplicated; Z3A.01 Less than 8 weeks gestation of pregnancy
CPT/HCPCS: 36415; 76817; 80053; 81001; 84702; 85025; 86900; 86901; 99284

== ENCOUNTER 2021-10-26 14:26 | Emergency (ER) | payer MEDICAID ==
[2021-10-26 14:44] VITALS: BP 155/96
--- NOTE | 2021-10-26 19:44 | Emergency Department Report ---
ED General Adult HPI - General Chief complaint: Neuro Symptoms/Deficit Stated complaint: NUMBNESS Source: patient Mode of arrival: Ambulatory Limitations: No Limitations - History of Present Illness Initial comments: Patient is a 31-year-old -Surinamese female with a history of asthma and anxiety who presents to the ED with complaint of acute onset persistent intermittent left upper and lower extremity numbness and tingling sensations for the last 10 days after extensive cleaning of her house on . Patient states that the symptoms have been persistent and intermittent and she got concerned that something may be wrong with her and she decided come to the ED for evaluation especially after developing generalized fatigue and weakness. Patient denies dizziness, syncope, headache, change in vision, nausea and vomiting or diarrhea, abdominal pain, chest pain, shortness of breath, headache, fever and chills, traumatic injury or heavy lifting and fall or back pain. MD Complaint: Left arm and left leg numbness and tingling sensations -: Sudden, days(s) (10) Location: upper extremity (Left), lower extremity (Left) Radiation: extremity (Left upper and lower extremity numbness and tingling sensations) Severity scale (0 -10): 0 Quality: dull Consistency: intermittent Improves with: none Worsens with: none Associated Symptoms: denies other symptoms, malaise, weakness. denies: confusion, cough, diaphoresis, fever/chills, headaches, loss of appetite, nausea/vomiting, rash, seizure, shortness of breath, syncope Treatments Prior to Arrival: none - Related Data Home Medications Medication Instructions Recorded Confirmed Last Taken Multivitamin Tablet 11/28/17 Unknown Previous Rx's Medication Instructions Recorded Last Taken Type Ciprofloxacin HCl [Cipro] 500 mg PO BID #6 tablet 11/29/17 Unknown Rx Amoxicillin/K Clav Tab [Augmentin 1 tab PO Q12HR #14 tab 04/22/18 Unknown Rx 875 mg] Butalb/Acetamin/Caff 50-325-40 1 tab PO Q6HR PRN #20 tab 04/22/18 Unknown Rx [Fioricet] Ibuprofen [Motrin] 600 mg PO Q8H PRN #30 tablet 04/22/18 Unknown Rx Levocetirizine Dihydrochloride 5 mg PO QHS PRN #10 tablet 08/25/21 Unknown Rx [Xyzal] dexAMETHasone [Decadron] 8 mg PO QAM 2 Days #4 tablet 08/25/21 Unknown Rx cephALEXin [Keflex] 500 mg PO Q8HR #21 cap 09/23/21 Unknown Rx Allergies Allergy/AdvReac Type Severity Reaction Status Date / Time No Known Allergies Allergy Verified 10/26/21 14:28 ED Review of Systems ROS: Stated complaint: NUMBNESS Other details as noted in HPI Constitutional: denies: chills, fever Eyes: denies: eye pain, eye discharge, vision change ENT: denies: ear pain, throat pain Respiratory: denies: cough, shortness of breath, wheezing Cardiovascular: denies: chest pain, palpitations Endocrine: no symptoms reported Gastrointestinal: denies: abdominal pain, nausea, diarrhea Genitourinary: denies: urgency, dysuria, discharge Musculoskeletal: other (Left upper and lower extremity numbness and tingling sensations). denies: back pain, joint swelling, arthralgia Skin: denies: rash, lesions Neurological: paresthesias (Left upper and lower extremity tingling and numbness sensation). denies: headache, weakness Psychiatric: denies: anxiety, depression Hematological/Lymphatic: denies: easy bleeding, easy bruising ED Past Medical Hx - Past Medical History Hx Hypertension: No Hx Diabetes: No Hx Deep Vein Thrombosis: No Hx Renal Disease: No Hx Sickle Cell Disease: No Hx Seizures: No Hx Asthma: Yes Hx HIV: No - Surgical History Additional Surgical History: - Social History Smoking Status: Never Smoker Substance Use Type: Alcohol - Medications Home Medications: Home Medications Medication Instructions Recorded Confirmed Last Taken Type Multivitamin Tablet 11/28/17 Unknown History Ciprofloxacin HCl [Cipro] 500 mg PO BID #6 tablet 11/29/17 Unknown Rx Amoxicillin/K Clav Tab [Augmentin 1 tab PO Q12HR #14 tab 04/22/18 Unknown Rx 875 mg] Butalb/Acetamin/Caff 50-325-40 1 tab PO Q6HR PRN #20 tab 04/22/18 Unknown Rx [Fioricet] Ibuprofen [Motrin] 600 mg PO Q8H PRN #30 tablet 04/22/18 Unknown Rx Levocetirizine Dihydrochloride 5 mg PO QHS PRN #10 tablet 08/25/21 Unknown Rx [Xyzal] dexAMETHasone [Decadron] 8 mg PO QAM 2 Days #4 tablet 08/25/21 Unknown Rx cephALEXin [Keflex] 500 mg PO Q8HR #21 cap 09/23/21 Unknown Rx ED Physical Exam - General Limitations: No Limitations General appearance: alert, in no apparent distress - Head Head exam: Present: atraumatic, normocephalic, normal inspection - Eye Eye exam: Present: normal appearance, PERRL, EOMI Pupils: Present: normal accommodation - ENT ENT exam: Present: normal exam, normal orophraynx, mucous membranes moist, TM's normal bilaterally, normal external ear exam - Neck Neck exam: Present: normal inspection, full ROM. Absent: tenderness - Respiratory Respiratory exam: Present: normal lung sounds bilaterally. Absent: respiratory distress, wheezes, rales, rhonchi, chest wall tenderness, accessory muscle use, decreased breath sounds, prolonged expiratory - Cardiovascular Cardiovascular Exam: Present: normal rhythm, tachycardia, normal heart sounds. Absent: systolic murmur, diastolic murmur, rubs, gallop - GI/Abdominal GI/Abdominal exam: Present: soft, normal bowel sounds. Absent: distended, tenderness, guarding, rebound, hyperactive bowel sounds, hypoactive bowel sounds, mass - Extremities Exam Extremities exam: Present: normal inspection, full ROM, normal capillary refill. Absent: tenderness, pedal edema, joint swelling, calf tenderness - Back Exam Back exam: Present: normal inspection, full ROM. Absent: tenderness, CVA tenderness (R), CVA tenderness (L), muscle spasm, paraspinal tenderness, vertebral tenderness - Neurological Exam Neurological exam: Present: alert, oriented X3, CN II-XII intact, normal gait, reflexes normal - Psychiatric Psychiatric exam: Present: normal affect, normal mood, anxious - Skin Skin exam: Present: warm, dry, intact, normal color. Absent: rash ED Course Vital Signs 10/26/21 14:31 Temperature 98.2 F Pulse Rate 110 H Respiratory 18 Rate Blood Pressure 155/96 [Right] O2 Sat by Pulse 100 Oximetry ED Medical Decision Making - Medical Decision Making This is a 31-year-old -Surinamese female with a history of asthma and anxiety who presents to the ED with complaint of acute onset persistent intermittent left upper and lower extremity numbness and tingling sensations for the last 10 days after extensive cleaning of her house on . Patient states that the symptoms have been persistent and intermittent and she got concerned that something may be wrong with her and she decided come to the ED for evaluation especially after developing generalized fatigue and weakness. In the ED, patient is alert and oriented x3 and is not in any distress. Patient is however tachycardic but afebrile in triage. Patient however eloped from the ED before having other tests initiated. At the time of the patient's elopement the patient condition was unknown. - Differential Diagnosis Cervical radiculopathy, anxiety, muscle spasm, Critical care attestation.: If time is entered above; I have spent that time in minutes in the direct care of this critically ill patient, excluding procedure time. ED Disposition Clinical Impression: Cervical radiculopathy, Anxiety as acute reaction to gross stress Disposition: 07 LEFT AWOL/ELOPED Is pt being admited?: No Does the pt Need Aspirin: No Condition: Stable Instructions: Generalized Anxiety Disorder, Adult, Cervical Radiculopathy, [id number] Referrals: PRIMARY CARE, [Primary Care Provider] - 3-5 Days Time of Disposition: 21:40
[2021-10-26 22:28] LABS: Bilirubin,Urine NEG (Negative); Blood,Urine NEG (Negative); Color,Urine Yellow (Yellow); Mucus,Urine FEW /HPF; Protein,Urine <15 mg/dL mg/dL (Negative); RBC,Urine < 1.0 /HPF (0.0-6.0); Urobilinogen,Urine < 2.0 mg/dL (<2.0)
[2021-10-26 23:03] LABS: HCG Qualitative,Urine Negative (Negative)
[2021-10-26 23:10] LABS: WBC,Urine < 1.0 /HPF (0.0-6.0)
== END 2021-10-27 16:30 | disposition left against medical advice (07) ==
LOC: ED 14:26
DX: M54.12 Radiculopathy, cervical region (principal); F41.1 Generalized anxiety disorder; F43.0 Acute stress reaction; J45.909 Unspecified asthma, uncomplicated; Z98.890 Other specified postprocedural states
CPT/HCPCS: 81001; 81025; 82962; 99283

== ENCOUNTER 2021-11-26 10:12 | Emergency (ER) | payer MEDICAID ==
[2021-11-26 11:44] VITALS: BP 115/74
[2021-11-26] MEDS ORDERED: DICYCLOMINE 10 MG/5 ML ORAL LIQD PO ONE (12:28)
[2021-11-26] MEDS ORDERED: ALUM-MAG HYDROXIDE-SIMETHICONE 200-200-20MG/5ML ORAL LIQD 30 ML PO ONE (12:28)
[2021-11-26] MEDS ORDERED: LIDOCAINE VISCOUS 2% 15 ML ORAL LIQD PO ONE (12:29)
--- NOTE | 2021-11-26 12:29 | Emergency Department Report ---
ED Abdominal Pain HPI - General Chief Complaint: Abdominal Pain Stated Complaint: ABD PAIN PUI?: No Time Seen by Provider: 11/26/21 12:25 Source: patient Mode of arrival: Ambulatory Limitations: No Limitations - History of Present Illness Initial Comments: 31-year-old black female with no known past medical history presents to the emergency department for evaluation of 3 to 4-day history of abdominal pain. She states that she has been having problems having a bowel movement for the past 3 days. She states that she took a laxative on Wednesday but only had a small amount of bowel come out. She states that she feels like whenever she attempts to go to the bathroom that she is straining and her heart rate is elevated. She states that she was seen by a community support associate about 1 month ago for evaluation of change in bowel pattern decreased appetite and weight loss. She states that he did not find anything concrete, and told her she should just change her diet. She states that she now has cramping in her left lower q uadrant intermittently that she feels is secondary to inability to have a good bowel movement, and she also is complaining of burning to her epigastric area. She denies fever blood in stool and vomiting but states that she does have some periods of intermittent nausea. MD Complaint: abdominal pain -: Gradual, days(s) (3-4) Location: epigastric Severity: moderate Quality: cramping, burning Consistency: intermittent Associated Symptoms: denies: nausea, vomiting, diarrhea, fever, dysuria, hematemesis, hematochezia, hematuria, anorexia - Related Data LMP Date: 11/04/21 Home Medications Medication Instructions Recorded Confirmed Last Taken Multivitamin Tablet 11/28/17 Unknown Previous Rx's Medication Instructions Recorded Last Taken Type Ciprofloxacin HCl [Cipro] 500 mg PO BID #6 tablet 11/29/17 Unknown Rx Amoxicillin/K Clav Tab [Augmentin 1 tab PO Q12HR #14 tab 04/22/18 Unknown Rx 875 mg] Butalb/Acetamin/Caff 50-325-40 1 tab PO Q6HR PRN #20 tab 04/22/18 Unknown Rx [Fioricet] Ibuprofen [Motrin] 600 mg PO Q8H PRN #30 tablet 04/22/18 Unknown Rx Levocetirizine Dihydrochloride 5 mg PO QHS PRN #10 tablet 08/25/21 Unknown Rx [Xyzal] dexAMETHasone [Decadron] 8 mg PO QAM 2 Days #4 tablet 08/25/21 Unknown Rx cephALEXin [Keflex] 500 mg PO Q8HR #21 cap 09/23/21 Unknown Rx Magnesium Citrate 295 ml PO ONCE #1 bottle 11/26/21 Unknown Rx Allergies Allergy/AdvReac Type Severity Reaction Status Date / Time No Known Allergies Allergy Verified 11/26/21 11:44 ED Review of Systems ROS: Stated complaint: ABD PAIN Other details as noted in HPI Comment: All other systems reviewed and negative Constitutional: no symptoms reported Respiratory: no symptoms reported. denies: cough, shortness of breath Cardiovascular: denies: chest pain, palpitations, edema, syncope Endocrine: no symptoms reported Gastrointestinal: abdominal pain, nausea, constipation. denies: vomiting, diarrhea, hematemesis, melena, hematochezia Genitourinary: denies: urgency, dysuria, frequency, hematuria, discharge, abnormal menses Musculoskeletal: denies: back pain Skin: denies: rash, lesions ED Past Medical Hx - Past Medical History Previous Medical History?: Yes Hx Hypertension: No Hx Diabetes: No Hx Deep Vein Thrombosis: No Hx Renal Disease: No Hx Sickle Cell Disease: No Hx Seizures: No Hx Asthma: Yes Hx HIV: No - Surgical History Past Surgical History?: Yes Additional Surgical History: - Social History Smoking Status: Never Smoker Substance Use Type: Alcohol - Medications Home Medications: Home Medications Medication Instructions Recorded Confirmed Last Taken Type Multivitamin Tablet 11/28/17 Unknown History Ciprofloxacin HCl [Cipro] 500 mg PO BID #6 tablet 11/29/17 Unknown Rx Amoxicillin/K Clav Tab [Augmentin 1 tab PO Q12HR #14 tab 04/22/18 Unknown Rx 875 mg] Butalb/Acetamin/Caff 50-325-40 1 tab PO Q6HR PRN #20 tab 04/22/18 Unknown Rx [Fioricet] Ibuprofen [Motrin] 600 mg PO Q8H PRN #30 tablet 04/22/18 Unknown Rx Levocetirizine Dihydrochloride 5 mg PO QHS PRN #10 tablet 08/25/21 Unknown Rx [Xyzal] dexAMETHasone [Decadron] 8 mg PO QAM 2 Days #4 tablet 08/25/21 Unknown Rx cephALEXin [Keflex] 500 mg PO Q8HR #21 cap 09/23/21 Unknown Rx Magnesium Citrate 295 ml PO ONCE #1 bottle 11/26/21 Unknown Rx ED Physical Exam - General Limitations: No Limitations General appearance: alert, in no apparent distress - Head Head exam: Present: atraumatic, normocephalic - Eye Eye exam: Present: normal appearance. Absent: conjunctival injection - Neck Neck exam: Present: normal inspection - Respiratory Respiratory exam: Present: normal lung sounds bilaterally. Absent: respiratory distress, wheezes, rales, chest wall tenderness, accessory muscle use - Cardiovascular Cardiovascular Exam: Present: regular rate, normal heart sounds - GI/Abdominal GI/Abdominal exam: Present: soft, tenderness (To left lower quadrant), normal bowel sounds. Absent: distended, guarding, rebound, rigid, mass - Extremities Exam Extremities exam: Present: normal inspection - Back Exam Back exam: Present: normal inspection. Absent: tenderness, CVA tenderness (R), CVA tenderness (L) - Neurological Exam Neurological exam: Present: alert, oriented X3 - Psychiatric Psychiatric exam: Present: normal affect, normal mood - Skin Skin exam: Present: warm, dry, intact ED Course Vital Signs 11/26/21 11:41 Temperature 98.8 F Pulse Rate 100 H Respiratory 14 Rate Blood Pressure 115/74 O2 Sat by Pulse 100 Oximetry ED Medical Decision Making - Lab Data Result diagrams: 11/26/21 12:46 11/26/21 12:46 - Radiology Data Radiology results: report reviewed, image reviewed - Medical Decision Making 31-year-old black female with no known past medical history presents to the emergency department for evaluation of 3 to 4-day history of abdominal pain. She states that she has been having problems having a bowel movement for the past 3 days. She states that she took a laxative on Wednesday but only had a small amount of bowel come out. She states that she feels like whenever she attempts to go to the bathroom that she is straining and her heart rate is elevated. She states that she was seen by a community support associate about 1 month ago for evaluation of change in bowel pattern decreased appetite and weight loss. She states that he did not find anything concrete, and told her she should just ch debbie her diet. She states that she now has cramping in her left lower quadrant intermittently that she feels is secondary to inability to have a good bowel movement, and she also is complaining of burning to her epigastric area. She denies fever blood in stool and vomiting but states that she does have some periods of intermittent nausea. No gross abnormalities noted to the labs. KUB noted to have increased amount of stool without constipation. Patient will be given prescription for one-time dose of mag citrate. She is encouraged to follow-up with GI as planned. Drink plenty of noncaffeinated fluids and eat a diet high in fiber. She was advised to follow-up in the emergency department if she develops fever worsening pain or any concerning symptoms. Results and plan was reviewed with patient and she verbalized understanding of plan and agreed with it. Critical care attestation.: If time is entered above; I have spent that time in minutes in the direct care of this critically ill patient, excluding procedure time. ED Disposition Clinical Impression: Abdominal pain Qualifiers: Abdominal location: epigastric Qualified Code(s): R10.13 - Epigastric pain Constipation Qualifiers: Constipation type: unspecified constipation type Qualified Code(s): K59.00 - Constipation, unspecified Disposition: 01 HOME / SELF CARE / HOMELESS Is pt being admited?: No Does the pt Need Aspirin: No Instructions: Constipation, Adult, [id number], Abdominal Pain, Adult, [id number], Pain Without a Known Cause, Abdominal Pain (ED) Additional Instructions: Take medications as prescribed. Drink plenty of noncaffeinated fluids. Eat a diet high in fiber. Follow-up with GI as previously planned. Return to the emergency room if worsening symptoms or no improvement. Prescriptions: Magnesium Citrate 295 ml PO ONCE #1 bottle Referrals: BIMAL PATIÑO MD [Referring] - 3-5 Days SHANTANU PINO MD [Staff Physician] - 3-5 Days Time of Disposition: 15:57
[2021-11-26 13:24] LABS: Mean Corpuscular HGB Conc 31 % (30-34); Mean Corpuscular Volume 99 fl (79-97); Platelet Count 264 K/mm3 (140-440); Red Blood Count 4.38 M/mm3 (3.65-5.03); Red Cell Distribution Width 14.1 % (13.2-15.2)
[2021-11-26 13:40] LABS: Alanine Aminotransferase 16 units/L (7-56); Albumin 4.3 g/dL (3.9-5); Blood Urea Nitrogen 9 mg/dL (7-17); Calcium 8.9 mg/dL (8.4-10.2); Hemolysis Index 4
[2021-11-26 13:54] LABS: Hemoglobin 13.3 gm/dl (10.1-14.3)
[2021-11-26 13:55] LABS: Hematocrit 43.2 % (30.3-42.9)
[2021-11-26 14:21] LABS: BUN/Creatinine Ratio 13
[2021-11-26 14:42] LABS: Bacteria,Urine 2+ /HPF (Negative); Bilirubin,Urine NEG (Negative); Blood,Urine NEG (Negative); Color,Urine Yellow (Yellow); Mucus,Urine 1+ /HPF; Protein,Urine <15 mg/dL mg/dL (Negative)
[2021-11-26 14:44] LABS: HCG Qualitative,Urine Negative (Negative)
--- NOTE | 2021-11-26 15:31 | XRay Report ---
ABDOMEN 1 VIEW(S) INDICATION / CLINICAL INFORMATION: abdominal pain, possible constipation. COMPARISON: None available. FINDINGS: TUBES / LINES: None. BOWEL GAS PATTERN/EXTRALUMINAL GAS: No significant abnormality. No pneumatosis or secondary signs of free air. ADDITIONAL FINDINGS: No significant additional findings. IMPRESSION: 1. No acute findings. Signer Name: Santiago Lucero MD Signed: 11/26/2021 3:27 PM Workstation Name: [id number]
== END 2021-11-26 17:30 | disposition home or self-care (01) ==
LOC: ED 10:12
DX: R10.13 Epigastric pain (principal); K59.00 Constipation, unspecified; J45.909 Unspecified asthma, uncomplicated; Z98.890 Other specified postprocedural states
CPT/HCPCS: 36415; 74018; 80053; 81001; 81025; 83690; 85027; 99283